=== PATIENT | female | born 1975 | race Caucasian/White ===

== ENCOUNTER 2017-10-27 10:41 | Inpatient (IN) | payer BC, OTHER ==
[~2017-10-27] VITALS: Ht 157.5 cm; Wt 61.1 kg
[~2017-10-27 10:41] MED LIST: QUEtiapine FUMARATE 25 MG TAB PO SCH
[2017-10-27] MEDS ORDERED: SODIUM CHLORIDE 0.9% 1,000 ML IV ONE ×2 (13:30→17:00)
[2017-10-27] MEDS ORDERED: IPRATROPIUM BROM 0.5 MG/2.5ML INH SOL NEB ONE ×2 (13:30→15:15)
[2017-10-27] MEDS ORDERED: methylPREDNISolone SOD SUCC 125 MG/2 ML VL IV ONE (13:30)
[2017-10-27] MEDS ORDERED: ALBUTEROL SULF 2.5 MG/0.5ML(0.5%) NEB SOLN NEB ONE ×2 (13:30→15:15)
[2017-10-27] MEDS ORDERED: cefTRIAXone 1GM/10ml IVPUSH 10 ML IV ONE ×2 (15:15)
[2017-10-27 15:26] LABS: Urine WBC None Seen /hpf (0 - 5)
[2017-10-27 15:39] LABS: Urine Bacteria NONE SEEN /hpf (None Seen); Urine Blood Negative /uL (Negative); Urine Specific Gravity 1.002 (1.001-1.035)
[2017-10-27 16:25] LABS: Basophils # (auto) 0 uL; Basophils % (auto) 0.4 % (0.0-2.0); Eosinophils # (auto) 0 uL; Hematocrit 38.1 % (36.0-46.0); Hemoglobin 12.8 g/dL (12.2-16.2); Lymphocytes # (auto) 0.5 uL; Lymphocytes % (auto) 4.9 % (10.0-50.0); Mean Corpuscular Hemoglobin 33.2 pg (28.0-32.0); Mean Corpuscular Hgb Conc. 33.5 g/dL (32.0-36.0); Mean Corpuscular Volume 99.3 fL (80.0-100.0); Monocytes # (auto) 0.4 uL; Monocytes % (auto) 3.5 % (0.0-12.0); Neutrophils # (auto) 9.9 uL; Neutrophils % (auto) 91.2 % (37.0-80.0); Platelet Count (auto) 307 10^3/uL (140-450); Red Blood Cells 3.84 10^6/uL (4.0-5.20); Red Cell Distribution Width 14.7 % (11.8-14.3); White Blood Cell 10.9 10^3/uL (4.4-10.8)
[2017-10-27 16:35] LABS: Albumin 3.2 g/dL (3.4-5.0); BUN/Creatinine Ratio 2.3; Potassium 3.5 mmol/L (3.5-5.1)
[2017-10-27 16:38] LABS: Bilirubin, Total 0.1 mg/dL (0.2-1.0); Total Protein 7.2 g/dL (6.4-8.2)
[2017-10-27] MEDS ORDERED: MORPHINE SULFATE 4 MG/ML SYR/VIAL IV PRN (18:15)
[2017-10-27] MEDS ORDERED: NITROGLYCERIN 0.4 MG SL TAB SL PRN (18:15)
[2017-10-27] MEDS ORDERED: ONDANSETRON HCL 4 MG/2 ML VIAL IV PRN (18:15)
[2017-10-27] MEDS: SODIUM CHLORIDE 0.9% 1,000 ML IV SCH (18:45)
[2017-10-27] MEDS: methylPREDNISolone SOD SUCC 125 MG/2 ML VL IV SCH (18:49)
[2017-10-27 19:20] VITALS: BP 123/67
[2017-10-27] MEDS ORDERED: QUET50TA PO (21:38)
[2017-10-27] MEDS ORDERED: ZOLP10TA6 PO (21:38)
[2017-10-27] MEDS ORDERED: BUDE0.253 IN (21:38)
[2017-10-27] MEDS ORDERED: PRE5T PO (21:38)
[2017-10-27] MEDS ORDERED: ALBU2TAB4 PO (21:38)
[2017-10-27] MEDS ORDERED: CARB200T4 PO (21:38)
[2017-10-27 22:00] VITALS: BP 123/67
[2017-10-27] MEDS: IPRATROPIUM BROM 0.5 MG/2.5ML INH SOL NEB SCH (22:10)
[2017-10-27] MEDS: ALBUTEROL SULF 2.5 MG/0.5ML(0.5%) NEB SOLN NEB SCH (22:10)
[2017-10-27] MEDS ORDERED: ALBUTEROL SULF 2.5 MG/0.5ML(0.5%) NEB SOLN NEB PRN (22:45)
[2017-10-27] MEDS ORDERED: ZOLPIDEM TARTRATE 5 MG TAB PO PRN (22:45)
[2017-10-27] MEDS ORDERED: QUEtiapine FUMARATE 25 MG TAB PO ONE (23:45)
[2017-10-28] MEDS: SODIUM CHLORIDE 0.9% 1,000 ML IV SCH ×2 (02:08→10:45)
[2017-10-28] MEDS: ALBUTEROL SULF 2.5 MG/0.5ML(0.5%) NEB SOLN NEB SCH ×7 (02:20→22:39)
[2017-10-28] MEDS: IPRATROPIUM BROM 0.5 MG/2.5ML INH SOL NEB SCH ×6 (02:20→22:39)
[2017-10-28 04:40] VITALS: BP 123/67
[2017-10-28 05:00] VITALS: BP 122/64
[2017-10-28 05:59] LABS: Basophils # (auto) 0 uL; Basophils % (auto) 0.4 % (0.0-2.0); Eosinophils # (auto) 0 uL; Eosinophils % (auto) 0.1 % (0.0-7.0); Hemoglobin 11.9 g/dL (12.2-16.2); Lymphocytes # (auto) 2.1 uL; Lymphocytes % (auto) 30.1 % (10.0-50.0); Mean Corpuscular Hemoglobin 33.9 pg (28.0-32.0); Mean Corpuscular Hgb Conc. 34.1 g/dL (32.0-36.0); Mean Corpuscular Volume 99.5 fL (80.0-100.0); Monocytes % (auto) 15.1 % (0.0-12.0); Neutrophils # (auto) 3.7 uL; Neutrophils % (auto) 54.3 % (37.0-80.0); Nucleated Red Blood Cells % 0.1 %; Platelet Count (auto) 272 10^3/uL (140-450); Red Blood Cells 3.52 10^6/uL (4.0-5.20); Red Cell Distribution Width 14.2 % (11.8-14.3); White Blood Cell 6.8 10^3/uL (4.4-10.8)
[2017-10-28 06:22] LABS: Alanine Aminotransferase 23 U/L (13-56); Albumin 2.7 g/dL (3.4-5.0); Alkaline Phosphatase 70 U/L (45-117); Anion Gap 6 (5-15); Aspartate Aminotransferase 17 U/L (15-37); BUN/Creatinine Ratio 11.1; Bilirubin, Total < 0.1 mg/dL (0.2-1.0); Blood Urea Nitrogen 3 mg/dL (7-18); Calcium 7.8 mg/dL (8.5-10.1); Carbon Dioxide 28 mmol/L (21-32); Chloride 105 mmol/L (98-107); GFR African American 353 mL/min; GFR Non-African American 291 mL/min; Glucose 90 mg/dL (74-106); Potassium 3.8 mmol/L (3.5-5.1); Sodium 139 mmol/L (136-145); Total Protein 6.4 g/dL (6.4-8.2)
[2017-10-28] MEDS: carBAMazepine 200 MG TAB PO SCH ×3 (06:53→21:57)
[2017-10-28] MEDS: methylPREDNISolone SOD SUCC 125 MG/2 ML VL IV SCH ×2 (06:54→17:56)
[2017-10-28] MEDS: ACETAMINOPHEN 500 MG TAB PO PRN (08:47)
[2017-10-28 09:00] VITALS: BP 144/88
[2017-10-28] MEDS ORDERED: cefTRIAXone 1GM/10ml IVPUSH 10 ML IV SCH (09:00)
[2017-10-28] MEDS ORDERED: QUEtiapine FUMARATE 25 MG TAB PO SCH ×3 (10:00→18:00)
[2017-10-28 13:00] VITALS: BP 122/76
[2017-10-28] MEDS ORDERED: LEVOFLOXACIN 500MG 100 ML IV ONE (14:00)
[2017-10-28] MEDS ORDERED: THROAT LOZENGES(CEPASTAT) MT PRN (14:00)
[2017-10-28 17:00] VITALS: BP 126/79
[2017-10-28] MEDS: QUEtiapine FUMARATE 25 MG TAB PO SCH (21:57)
[2017-10-28] MEDS: ZOLPIDEM TARTRATE 5 MG TAB PO PRN (21:57)
[2017-10-28 22:00] VITALS: BP 130/79
[2017-10-28] MEDS: BUDESONIDE (INHALATION) 0.5 MG/2 ML NEB NEB SCH ×2 (22:00→22:39)
[2017-10-29] MEDS: IPRATROPIUM BROM 0.5 MG/2.5ML INH SOL NEB SCH ×6 (01:59→22:04)
[2017-10-29] MEDS: ACETAMINOPHEN 500 MG TAB PO PRN (04:09)
[2017-10-29 05:24] VITALS: BP 113/71
[2017-10-29] MEDS: ALBUTEROL SULF 2.5 MG/0.5ML(0.5%) NEB SOLN NEB SCH ×5 (06:42→22:04)
[2017-10-29] MEDS: carBAMazepine 200 MG TAB PO SCH ×3 (06:43→22:32)
[2017-10-29] MEDS: methylPREDNISolone SOD SUCC 125 MG/2 ML VL IV SCH ×2 (06:43→18:13)
[2017-10-29] MEDS: QUEtiapine FUMARATE 25 MG TAB PO SCH ×3 (06:44→22:32)
[2017-10-29 09:00] VITALS: BP 124/67
[2017-10-29] MEDS ORDERED: MORPHINE SULFATE 10 MG/ML INJ 1ML SDV IV PRN (09:30)
[2017-10-29] MEDS: BUDESONIDE (INHALATION) 0.5 MG/2 ML NEB NEB SCH ×2 (10:34→19:09)
[2017-10-29] MEDS: LEVOFLOXACIN 500MG 100 ML IV SCH (10:44)
[2017-10-29 12:55] VITALS: BP 106/62
[2017-10-29 17:00] VITALS: BP 130/80
[2017-10-29 22:18] VITALS: BP 126/79
[2017-10-29] MEDS: ZOLPIDEM TARTRATE 5 MG TAB PO PRN (22:33)
[2017-10-30] MEDS: ALBUTEROL SULF 2.5 MG/0.5ML(0.5%) NEB SOLN NEB SCH ×5 (02:46→19:04)
[2017-10-30] MEDS: IPRATROPIUM BROM 0.5 MG/2.5ML INH SOL NEB SCH ×5 (02:46→19:03)
[2017-10-30 05:06] VITALS: BP 109/69
[2017-10-30] MEDS: carBAMazepine 200 MG TAB PO SCH ×2 (06:34→14:48)
[2017-10-30] MEDS: QUEtiapine FUMARATE 25 MG TAB PO SCH ×2 (06:35→12:47)
[2017-10-30] MEDS: methylPREDNISolone SOD SUCC 125 MG/2 ML VL IV SCH (06:35)
[2017-10-30 07:34] LABS: Hematocrit 38.7 % (36.0-46.0); Hemoglobin 12.8 g/dL (12.2-16.2); Mean Corpuscular Hemoglobin 32.9 pg (28.0-32.0); Mean Corpuscular Hgb Conc. 33.2 g/dL (32.0-36.0); Mean Corpuscular Volume 99.3 fL (80.0-100.0); Platelet Count (auto) 300 10^3/uL (140-450); Red Blood Cells 3.89 10^6/uL (4.0-5.20); Red Cell Distribution Width 13.9 % (11.8-14.3); White Blood Cell 5.4 10^3/uL (4.4-10.8)
[2017-10-30 07:38] LABS: Band Neutrophils % (manual) 0; Basophils % (manual) 0 (0.0-2.0); Blast Cells 0; Eosinophils % (manual) 0 (0-7); Metamyelocytes % 0; Myelocytes % 0; Promyelocytes % 0; Reactive Lymphocytes 0
[2017-10-30] MEDS: BUDESONIDE (INHALATION) 0.5 MG/2 ML NEB NEB SCH (07:41)
[2017-10-30 08:00] LABS: BUN/Creatinine Ratio 13.3; Calcium 8.3 mg/dL (8.5-10.1); Potassium 3.4 mmol/L (3.5-5.1)
[2017-10-30 08:02] LABS: Bilirubin, Total 0.1 mg/dL (0.2-1.0); Total Protein 6.8 g/dL (6.4-8.2)
[2017-10-30 08:44] LABS: Lymphocytes % (manual) 54 (10.0-50.0); Monocytes % (manual) 13 (0-12)
[2017-10-30 09:00] VITALS: BP 106/69
[2017-10-30] MEDS: LEVOFLOXACIN 500MG 100 ML IV SCH (12:46)
[2017-10-30 13:00] VITALS: BP 119/72
[2017-10-30 16:30] VITALS: BP 119/72
[2017-10-30 16:49] VITALS: BP 129/76
== END 2017-10-30 19:13 | disposition home or self-care (01) | DRG 203 ==
LOC: ER 10:41 → TELE-WESTW 10:42
PROVIDERS: ADMIT Family Medicine; ATTEND Family Medicine
DX: J45.902 Unspecified asthma with status asthmaticus (principal); F20.9 Schizophrenia, unspecified; J20.9 Acute bronchitis, unspecified; R09.02 Hypoxemia; F17.210 Nicotine dependence, cigarettes, uncomplicated; G47.00 Insomnia, unspecified; Z88.0 Allergy status to penicillin
CPT/HCPCS: 36415; 71010; 71020; 80053; 81001; 83735; 84443; 85007; 85025; 85027; 87040; 87070; 87205; 87400; 94640; 94644; 94645; 94761; 96361; 96365; 96375; J1956

== ENCOUNTER 2017-11-15 05:14 | Inpatient (IN) | payer BC ==
[~2017-11-15] VITALS: Ht 154.9 cm; Wt 57.3 kg
[~2017-11-15 05:14] MED LIST changes: +ALBU2TAB4 PO; +BUDE0.253 IN; +CARB200T4 PO; +PRE5T PO; +QUET50TA PO; -QUEtiapine FUMARATE 25 MG TAB PO SCH; +ZOLP10TA6 PO
[2017-11-15 06:15] LABS: Basophils # (auto) 0 uL; Basophils % (auto) 0.2 % (0.0-2.0); Eosinophils # (auto) 0 uL; Hematocrit 44.6 % (36.0-46.0); Hemoglobin 15.1 g/dL (12.2-16.2); Lymphocytes # (auto) 2.1 uL; Lymphocytes % (auto) 9.9 % (10.0-50.0); Mean Corpuscular Hemoglobin 32.9 pg (28.0-32.0); Mean Corpuscular Hgb Conc. 33.8 g/dL (32.0-36.0); Mean Corpuscular Volume 97.3 fL (80.0-100.0); Monocytes % (auto) 4.7 % (0.0-12.0); Neutrophils # (auto) 17.8 uL; Neutrophils % (auto) 85.2 % (37.0-80.0); Platelet Count (auto) 327 10^3/uL (140-450); Red Blood Cells 4.58 10^6/uL (4.0-5.20); Red Cell Distribution Width 13.7 % (11.8-14.3); White Blood Cell 20.9 10^3/uL (4.4-10.8)
[2017-11-15] MEDS ORDERED: ACETAMINOPHEN 325 MG TAB PO ONE (06:15)
[2017-11-15 06:27] LABS: INR 0.9 (0.9-1.15); Partial Thromboplastin Time 28.2 sec (22.64-33.71); Prothrombin Time 9.8 sec (9.37-12.3)
[2017-11-15 06:45] LABS: Alanine Aminotransferase 28 U/L (13-56); Albumin 3.2 g/dL (3.4-5.0); Alkaline Phosphatase 94 U/L (45-117); Anion Gap 9 (5-15); Aspartate Aminotransferase 9 U/L (15-37); BUN/Creatinine Ratio 7.5; Bilirubin, Total 0.4 mg/dL (0.2-1.0); Blood Urea Nitrogen 3 mg/dL (7-18); Calcium 8.7 mg/dL (8.5-10.1); Carbon Dioxide 29 mmol/L (21-32); Chloride 92 mmol/L (98-107); GFR African American 224 mL/min; GFR Non-African American 185 mL/min; Glucose 95 mg/dL (74-106); Potassium 3.9 mmol/L (3.5-5.1); Sodium 130 mmol/L (136-145); Total Protein 7.7 g/dL (6.4-8.2)
[2017-11-15] MEDS ORDERED: SODIUM CHLORIDE 0.9% 1,000 ML IV ONE ×2 (07:10→08:15)
[2017-11-15] MEDS ORDERED: cefTRIAXone 1GM/10ml IVPUSH 10 ML IV ONE (07:15)
[2017-11-15] MEDS ORDERED: methylPREDNISolone SOD SUCC 125 MG/2 ML VL IV ONE (07:15)
[2017-11-15] MEDS ORDERED: ALBUTEROL SULF 2.5 MG/0.5ML(0.5%) NEB SOLN NEB ONE (07:15)
[2017-11-15] MEDS ORDERED: IPRATROPIUM BROM 0.5 MG/2.5ML INH SOL NEB ONE (07:15)
[2017-11-15] MEDS ORDERED: AZITHROMYCIN 500MG/ 250ML 250 ML IV ONE (07:15)
[2017-11-15 07:25] LABS: Urine Bacteria NONE SEEN /hpf (None Seen); Urine Blood Negative /uL (Negative); Urine Specific Gravity 1.004 (1.001-1.035); Urine WBC <1 /hpf (0 - 5)
[2017-11-15] MEDS ORDERED: PROMETHAZINE HCL 25 MG/ML 1ML IV PRN (10:30)
[2017-11-15] MEDS ORDERED: VANCOMYCIN 1GM/250ML 250 ML IV ONE (10:30)
[2017-11-15] MEDS ORDERED: HYDROcodone-ACET 5/325MG TAB PO PRN (10:30)
[2017-11-15] MEDS ORDERED: LACTULOSE 20Gm/30ML SOLN PO PRN (10:30)
[2017-11-15] MEDS ORDERED: NITROGLYCERIN 0.4 MG SL TAB SL PRN (10:30)
[2017-11-15] MEDS ORDERED: ALBUTEROL SULF 2.5 MG/0.5ML(0.5%) NEB SOLN NEB PRN (10:30)
[2017-11-15] MEDS ORDERED: VANCOMYCIN PER PHARMACY 0 MG IV SCH (10:30)
[2017-11-15] MEDS ORDERED: MORPHINE SULFATE 10 MG/ML INJ 1ML SDV IV PRN ×2 (10:30)
[2017-11-15] MEDS ORDERED: LORazepam 0.5 MG TAB PO PRN (10:30)
[2017-11-15] MEDS ORDERED: ACETAMINOPHEN 500 MG TAB PO PRN (10:30)
[2017-11-15] MEDS ORDERED: QUEtiapine FUMARATE 25 MG TAB PO ONE (10:45)
[2017-11-15] MEDS ORDERED: ENOXAPARIN SOD 40 MG/0.4 ML SYRINGE SC ONE (10:45)
[2017-11-15] MEDS: ZOLPIDEM TARTRATE 5 MG TAB PO SCH ×2 (10:45→22:15)
[2017-11-15] MEDS: SODIUM CHLORIDE 0.9% 1,000 ML IV SCH ×2 (10:52→22:38)
[2017-11-15] MEDS: ALBUTEROL SULF 2.5 MG/0.5ML(0.5%) NEB SOLN NEB SCH ×2 (11:30→20:03)
[2017-11-15] MEDS ORDERED: LEVOFLOXACIN 750MG 150 ML IV ONE (11:45)
[2017-11-15] MEDS ORDERED: chlordiazePOXIDE HCL 25 MG CAP PO PRN (12:00)
[2017-11-15] MEDS ORDERED: PROMETHAZINE W/CODEINE 5 ML ORAL SYRUP PO PRN (12:00)
[2017-11-15] MEDS ORDERED: THIAMINE HCL 100 MG/ML 2ML VIAL IV ONE (12:00)
[2017-11-15] MEDS: chlordiazePOXIDE HCL 5 MG CAP PO SCH ×2 (12:00→18:00)
[2017-11-15] MEDS: methylPREDNISolone SOD SUCC 40 MG/ML VL IV SCH ×2 (12:21→18:20)
[2017-11-15 13:16] VITALS: BP 116/72
[2017-11-15] MEDS: QUEtiapine FUMARATE 25 MG TAB PO SCH ×2 (13:54→22:15)
[2017-11-15] MEDS ORDERED: QUEtiapine FUMARATE 25 MG TAB PO SCH ×3 (14:00→22:00)
[2017-11-15] MEDS: carBAMazepine 200 MG TAB PO SCH ×2 (14:11→22:15)
[2017-11-15] MEDS: MEROPENEM 1gm/20ml IVPUSH 20 ML IV SCH ×2 (14:53→22:15)
[2017-11-15] MEDS: VANCOMYCIN 750 MG in D5W 5% 250 ML IV SCH (20:00)
[2017-11-15] MEDS: BUDESONIDE (INHALATION) 0.5 MG/2 ML NEB NEB SCH (20:03)
[2017-11-15] MEDS: BUDESONIDE 180 MCG IN SCH (20:07)
[2017-11-16] MEDS: methylPREDNISolone SOD SUCC 40 MG/ML VL IV SCH ×4 (00:19→17:25)
[2017-11-16] MEDS: chlordiazePOXIDE HCL 5 MG CAP PO SCH ×4 (00:19→17:25)
[2017-11-16] MEDS: ALBUTEROL SULF 2.5 MG/0.5ML(0.5%) NEB SOLN NEB SCH ×5 (00:40→22:51)
[2017-11-16] MEDS: VANCOMYCIN 750 MG in D5W 5% 250 ML IV SCH ×3 (03:57→20:10)
[2017-11-16] MEDS: MEROPENEM 1gm/20ml IVPUSH 20 ML IV SCH ×3 (05:57→22:31)
[2017-11-16] MEDS: carBAMazepine 200 MG TAB PO SCH ×3 (06:02→22:22)
[2017-11-16] MEDS: BUDESONIDE (INHALATION) 0.5 MG/2 ML NEB NEB SCH (06:28)
[2017-11-16 06:31] LABS: Basophils # (auto) 0 uL; Eosinophils # (auto) 0 uL; Hematocrit 36.8 % (36.0-46.0); Hemoglobin 12.4 g/dL (12.2-16.2); Lymphocytes # (auto) 1.6 uL; Mean Corpuscular Hgb Conc. 33.8 g/dL (32.0-36.0); Mean Corpuscular Volume 97.8 fL (80.0-100.0); Monocytes # (auto) 0.8 uL; Monocytes % (auto) 5.2 % (0.0-12.0); Neutrophils # (auto) 12.3 uL; Neutrophils % (auto) 83.8 % (37.0-80.0); Platelet Count (auto) 257 10^3/uL (140-450); Red Blood Cells 3.76 10^6/uL (4.0-5.20); Red Cell Distribution Width 14.1 % (11.8-14.3); White Blood Cell 14.7 10^3/uL (4.4-10.8)
[2017-11-16 06:49] LABS: Albumin 2.6 g/dL (3.4-5.0); BUN/Creatinine Ratio 17.4; Calcium 8.7 mg/dL (8.5-10.1)
[2017-11-16 06:52] LABS: Bilirubin, Total 0.2 mg/dL (0.2-1.0); Total Protein 6.4 g/dL (6.4-8.2)
[2017-11-16] MEDS: BUDESONIDE 180 MCG IN SCH ×2 (09:22→22:00)
[2017-11-16] MEDS: AZITHROMYCIN 500MG/ 250ML 250 ML IV SCH (09:30)
[2017-11-16] MEDS: QUEtiapine FUMARATE 25 MG TAB PO SCH ×3 (09:30→22:22)
[2017-11-16] MEDS: THIAMINE HCL 100 MG/ML 2ML VIAL IV SCH (09:30)
[2017-11-16] MEDS: ENOXAPARIN SOD 40 MG/0.4 ML SYRINGE SC SCH (09:31)
[2017-11-16] MEDS ORDERED: LEVOFLOXACIN 750MG 150 ML IV SCH (10:00)
[2017-11-16] MEDS ORDERED: ALBUTEROL SULF 2.5 MG/0.5ML(0.5%) NEB SOLN NEB SCH (12:00)
[2017-11-16] MEDS: SODIUM CHLORIDE 0.9% 1,000 ML IV SCH (13:03)
[2017-11-16 15:45] VITALS: BP 112/68
[2017-11-16 22:00] VITALS: BP 124/69
[2017-11-16] MEDS: ZOLPIDEM TARTRATE 5 MG TAB PO SCH (22:22)
[2017-11-17] MEDS: methylPREDNISolone SOD SUCC 40 MG/ML VL IV SCH ×4 (01:16→17:54)
[2017-11-17] MEDS: chlordiazePOXIDE HCL 5 MG CAP PO SCH ×4 (01:16→17:54)
[2017-11-17] MEDS: SODIUM CHLORIDE 0.9% 1,000 ML IV SCH ×2 (02:06→15:41)
[2017-11-17] MEDS: ALBUTEROL SULF 2.5 MG/0.5ML(0.5%) NEB SOLN NEB SCH ×6 (02:14→22:07)
[2017-11-17] MEDS: VANCOMYCIN 750 MG in D5W 5% 250 ML IV SCH ×3 (03:56→20:00)
[2017-11-17 05:41] VITALS: BP 116/62
[2017-11-17] MEDS: carBAMazepine 200 MG TAB PO SCH ×3 (06:06→22:04)
[2017-11-17] MEDS: MEROPENEM 1gm/20ml IVPUSH 20 ML IV SCH ×3 (06:06→22:03)
[2017-11-17] MEDS: QUEtiapine FUMARATE 25 MG TAB PO SCH ×3 (08:00→22:04)
[2017-11-17 08:01] LABS: Basophils # (auto) 0 uL; Basophils % (auto) 0.2 % (0.0-2.0); Eosinophils # (auto) 0 uL; Eosinophils % (auto) 0.1 % (0.0-7.0); Hematocrit 36.6 % (36.0-46.0); Hemoglobin 12.3 g/dL (12.2-16.2); Lymphocytes # (auto) 1.3 uL; Lymphocytes % (auto) 12.6 % (10.0-50.0); Mean Corpuscular Hemoglobin 33.1 pg (28.0-32.0); Mean Corpuscular Hgb Conc. 33.6 g/dL (32.0-36.0); Mean Corpuscular Volume 98.5 fL (80.0-100.0); Monocytes # (auto) 0.7 uL; Monocytes % (auto) 7.1 % (0.0-12.0); Neutrophils # (auto) 8.2 uL; Nucleated Red Blood Cells % 0.1 %; Platelet Count (auto) 265 10^3/uL (140-450); Red Blood Cells 3.72 10^6/uL (4.0-5.20); Red Cell Distribution Width 13.8 % (11.8-14.3); White Blood Cell 10.3 10^3/uL (4.4-10.8)
[2017-11-17 08:14] LABS: Calcium 8.3 mg/dL (8.5-10.1); Magnesium 2.5 mg/dL (1.6-2.6); Potassium 4.1 mmol/L (3.5-5.1)
[2017-11-17 09:00] VITALS: BP 116/75
[2017-11-17] MEDS: THIAMINE HCL 100 MG/ML 2ML VIAL IV SCH (09:36)
[2017-11-17] MEDS: AZITHROMYCIN 500MG/ 250ML 250 ML IV SCH (09:36)
[2017-11-17] MEDS: ENOXAPARIN SOD 40 MG/0.4 ML SYRINGE SC SCH (09:37)
[2017-11-17] MEDS: BUDESONIDE 180 MCG IN SCH ×2 (10:00→22:00)
[2017-11-17 13:00] VITALS: BP 127/80
[2017-11-17] MEDS ORDERED: FAMOTIDINE 20 MG TAB PO ONE (14:45)
[2017-11-17 17:00] VITALS: BP 123/83
[2017-11-17 22:00] VITALS: BP 137/91
[2017-11-17] MEDS: FAMOTIDINE 20 MG TAB PO SCH (22:04)
[2017-11-17] MEDS: ZOLPIDEM TARTRATE 5 MG TAB PO SCH (22:04)
[2017-11-18] MEDS: chlordiazePOXIDE HCL 5 MG CAP PO SCH ×3 (01:05→13:37)
[2017-11-18] MEDS: methylPREDNISolone SOD SUCC 40 MG/ML VL IV SCH ×3 (01:05→13:34)
[2017-11-18] MEDS: ALBUTEROL SULF 2.5 MG/0.5ML(0.5%) NEB SOLN NEB SCH ×4 (02:20→14:14)
[2017-11-18] MEDS: VANCOMYCIN 750 MG in D5W 5% 250 ML IV SCH ×2 (04:00→13:34)
[2017-11-18] MEDS: MEROPENEM 1gm/20ml IVPUSH 20 ML IV SCH (05:13)
[2017-11-18] MEDS: SODIUM CHLORIDE 0.9% 1,000 ML IV SCH (05:13)
[2017-11-18] MEDS: carBAMazepine 200 MG TAB PO SCH ×2 (05:14→15:11)
[2017-11-18 05:53] VITALS: BP 120/75
[2017-11-18 09:00] VITALS: BP 131/82
[2017-11-18 09:11] VITALS: BP 120/75
[2017-11-18] MEDS ORDERED: BUDESONIDE (INHALATION) 0.5 MG/2 ML NEB NEB SCH (10:00)
[2017-11-18] MEDS: QUEtiapine FUMARATE 25 MG TAB PO SCH ×2 (10:35→15:11)
[2017-11-18] MEDS: THIAMINE HCL 100 MG/ML 2ML VIAL IV SCH (10:35)
[2017-11-18] MEDS: FAMOTIDINE 20 MG TAB PO SCH (10:36)
[2017-11-18] MEDS: AZITHROMYCIN 500MG/ 250ML 250 ML IV SCH (10:36)
[2017-11-18] MEDS: ENOXAPARIN SOD 40 MG/0.4 ML SYRINGE SC SCH (10:36)
[2017-11-18 13:00] VITALS: BP 133/72
[2017-11-18 15:44] VITALS: BP 133/72
[2017-11-18 17:37] VITALS: BP 84/55
== END 2017-11-18 17:20 | disposition home or self-care (01) | DRG 177 ==
LOC: ER 05:15 → TELE 05:16 → TELE-WESTW 11-16 15:49
PROVIDERS: ADMIT Internal Medicine; ATTEND Internal Medicine
DX: J69.0 Pneumonitis due to inhalation of food and vomit (principal); J96.00 Acute respiratory failure, unspecified whether with hypoxia or hypercapnia; J45.41 Moderate persistent asthma with (acute) exacerbation; E44.1 Mild protein-calorie malnutrition; Z99.81 Dependence on supplemental oxygen; E78.5 Hyperlipidemia, unspecified; F17.210 Nicotine dependence, cigarettes, uncomplicated; F31.9 Bipolar disorder, unspecified; F41.9 Anxiety disorder, unspecified; Y95 Nosocomial condition; Z85.830 Personal history of malignant neoplasm of bone; Z87.01 Personal history of pneumonia (recurrent); Z90.710 Acquired absence of both cervix and uterus; Z68.23 Body mass index [BMI] 23.0-23.9, adult
CPT/HCPCS: 36415; 71045; 80048; 80053; 80202; 81001; 83735; 83880; 84100; 84484; 85025; 85610; 85730; 87040; 87070; 87077; 87081; 87186; 87205; 87400; 93005; 94640; 96365; 96366; 96375; 96379; J1956; J7060

== ENCOUNTER 2018-04-03 12:28 | Inpatient (IN) | payer BC ==
[~2018-04-03] VITALS: Ht 154.9 cm; Wt 68.0 kg
[2018-04-03] MEDS ORDERED: SODIUM CHLORIDE 0.9% 1,000 ML IV ONE (12:53)
[2018-04-03] MEDS ORDERED: ALBUTEROL SULF 2.5 MG/0.5ML(0.5%) NEB SOLN HHN ONE (13:00)
[2018-04-03] MEDS ORDERED: IPRATROPIUM BROM 0.5 MG/2.5ML INH SOL HHN ONE (13:00)
[2018-04-03 13:17] LABS: Basophils # (auto) 0.1 uL; Eosinophils # (auto) 0.2 uL; Lymphocytes # (auto) 1.8 uL; Monocytes # (auto) 0.7 uL
[2018-04-03 13:19] LABS: Basophils % (auto) 1.5 % (0.0-2.0); Eosinophils % (auto) 2.3 % (0.0-7.0); Hemoglobin 12.1 g/dL (12.2-16.2); Lymphocytes % (auto) 23.8 % (10.0-50.0); Mean Corpuscular Hemoglobin 31.7 pg (28.0-32.0); Mean Corpuscular Hgb Conc. 33.5 g/dL (32.0-36.0); Mean Corpuscular Volume 94.6 fL (80.0-100.0); Monocytes % (auto) 9.1 % (0.0-12.0); Neutrophils # (auto) 4.9 uL; Neutrophils % (auto) 63.3 % (37.0-80.0); Platelet Count (auto) 562 10^3/uL (140-450); Red Blood Cells 3.81 10^6/uL (4.0-5.20); Red Cell Distribution Width 12.4 % (11.8-14.3); White Blood Cell 7.7 10^3/uL (4.4-10.8)
[2018-04-03 13:54] LABS: Alanine Aminotransferase 14 U/L (13-56); Alkaline Phosphatase 109 U/L (45-117); Anion Gap 9 (5-15); Aspartate Aminotransferase 15 U/L (15-37); BUN/Creatinine Ratio 3.1; Bilirubin, Total 0.1 mg/dL (0.2-1.0); Blood Urea Nitrogen 1 mg/dL (7-18); Calcium 8.6 mg/dL (8.5-10.1); Carbon Dioxide 25 mmol/L (21-32); Chloride 94 mmol/L (98-107); GFR African American 288 mL/min; GFR Non-African American 238 mL/min; Glucose 76 mg/dL (74-106); Magnesium 2.7 mg/dL (1.6-2.6); Potassium 4.3 mmol/L (3.5-5.1); Sodium 128 mmol/L (136-145); Total Protein 7.6 g/dL (6.4-8.2)
[2018-04-03] MEDS ORDERED: methylPREDNISolone SOD SUCC 40 MG/ML VL IV ONE (14:30)
[2018-04-03] MEDS: SODIUM CHLORIDE 0.9% 1,000 ML IV SCH (14:30)
[2018-04-03] MEDS ORDERED: cefTRIAXone 1GM/10ml IVPUSH 10 ML IV ONE (14:30)
[2018-04-03] MEDS ORDERED: ALPRAZolam 0.25 MG TAB PO PRN (14:30)
[2018-04-03] MEDS ORDERED: AZITHROMYCIN 500MG/ 250ML 250 ML IV ONE (14:30)
[2018-04-03] MEDS ORDERED: LEVOFLOXACIN 500MG 100 ML IV ONE (14:45)
[2018-04-03 15:19] LABS: Urine Bacteria NONE SEEN /hpf (None Seen); Urine Blood Negative /uL (Negative); Urine Specific Gravity 1.004 (1.001-1.035); Urine WBC <1 /hpf (0 - 5)
[2018-04-03] MEDS ORDERED: ALPR0.25 PO (15:57)
[2018-04-03] MEDS ORDERED: QUET50TA PO (15:57)
[2018-04-03] MEDS ORDERED: QUET25TA37 PO (15:57)
[2018-04-03] MEDS ORDERED: CARB200T PO ×2 (15:57)
[2018-04-03] MEDS ORDERED: POLY335015 PO (15:57)
[2018-04-03] MEDS ORDERED: ZOLP10TA PO (15:57)
[2018-04-03] MEDS ORDERED: TIOTCAP IN (15:57)
[2018-04-03] MEDS ORDERED: LEVA1NEB5 NEB (15:57)
[2018-04-03 16:08] VITALS: BP 113/64
[2018-04-03 16:39] VITALS: BP 113/64
[2018-04-03] MEDS ORDERED: QUEtiapine FUMARATE 25 MG TAB PO ONE (18:00)
[2018-04-03] MEDS ORDERED: carBAMazepine 200 MG TAB PO ONE (18:00)
[2018-04-03] MEDS: ALBUTEROL SULF 2.5 MG/0.5ML(0.5%) NEB SOLN NEB SCH (18:28)
[2018-04-03] MEDS: IPRATROPIUM BROM 0.5 MG/2.5ML INH SOL NEB SCH (18:28)
[2018-04-03 20:12] VITALS: BP 113/64
[2018-04-03 22:00] VITALS: BP 104/62
[2018-04-03] MEDS ORDERED: carBAMazepine 200 MG TAB PO SCH (22:00)
[2018-04-03] MEDS: carBAMazepine 200 MG TAB PO SCH (22:33)
[2018-04-03] MEDS: QUEtiapine FUMARATE 25 MG TAB PO SCH (22:33)
[2018-04-03] MEDS: methylPREDNISolone SOD SUCC 40 MG/ML VL IV SCH (22:34)
[2018-04-03] MEDS: ZOLPIDEM TARTRATE 5 MG TAB PO PRN (23:08)
[2018-04-04] MEDS: BUDESONIDE (INHALATION) 0.5 MG/2 ML NEB NEB SCH ×2 (00:10→15:02)
[2018-04-04] MEDS: ALBUTEROL SULF 2.5 MG/0.5ML(0.5%) NEB SOLN NEB SCH ×5 (01:27→19:22)
[2018-04-04] MEDS: IPRATROPIUM BROM 0.5 MG/2.5ML INH SOL NEB SCH ×5 (01:27→19:22)
[2018-04-04] MEDS: SODIUM CHLORIDE 0.9% 1,000 ML IV SCH (03:49)
[2018-04-04 05:35] VITALS: BP 101/53
[2018-04-04 07:35] LABS: Basophils # (auto) 0 uL; Eosinophils # (auto) 0 uL; Lymphocytes # (auto) 2.1 uL; Red Cell Distribution Width 12.4 % (11.8-14.3); White Blood Cell 7.3 10^3/uL (4.4-10.8)
[2018-04-04 07:37] LABS: Basophils % (auto) 0.6 % (0.0-2.0); Eosinophils % (auto) 0.4 % (0.0-7.0); Hematocrit 32.5 % (36.0-46.0); Lymphocytes % (auto) 28.8 % (10.0-50.0); Mean Corpuscular Hemoglobin 32.1 pg (28.0-32.0); Mean Corpuscular Hgb Conc. 33.7 g/dL (32.0-36.0); Mean Corpuscular Volume 95.1 fL (80.0-100.0); Monocytes # (auto) 0.6 uL; Monocytes % (auto) 8.5 % (0.0-12.0); Neutrophils # (auto) 4.5 uL; Neutrophils % (auto) 61.7 % (37.0-80.0); Platelet Count (auto) 509 10^3/uL (140-450); Red Blood Cells 3.41 10^6/uL (4.0-5.20)
[2018-04-04 07:58] LABS: Calcium 8.5 mg/dL (8.5-10.1); Potassium 4.8 mmol/L (3.5-5.1)
[2018-04-04] MEDS: QUEtiapine FUMARATE 25 MG TAB PO SCH ×3 (08:35→22:42)
[2018-04-04] MEDS: carBAMazepine 200 MG TAB PO SCH ×3 (08:36→22:42)
[2018-04-04] MEDS ORDERED: cefTRIAXone 1GM/10ml IVPUSH 10 ML IV SCH (09:00)
[2018-04-04 09:08] VITALS: BP 98/48
[2018-04-04] MEDS: methylPREDNISolone SOD SUCC 40 MG/ML VL IV SCH ×2 (09:39→22:42)
[2018-04-04] MEDS: AZITHROMYCIN 500MG/ 250ML 250 ML IV SCH (09:39)
[2018-04-04 13:30] VITALS: BP 113/72
[2018-04-04] MEDS ORDERED: LEVOFLOXACIN 500MG 100 ML IV SCH (13:45)
[2018-04-04] MEDS: guaiFENesin-DM 100/10mg/5ml SYR PO PRN ×2 (14:13→23:21)
[2018-04-04 17:21] VITALS: BP 116/48
[2018-04-04] MEDS ORDERED: IBUPROFEN 400 MG TAB PO ONE (21:30)
[2018-04-04 22:00] VITALS: BP 130/73
[2018-04-04] MEDS: ZOLPIDEM TARTRATE 5 MG TAB PO PRN (22:43)
[2018-04-05 05:30] VITALS: BP 91/50
[2018-04-05 06:52] LABS: Basophils # (auto) 0.1 uL; Basophils % (auto) 0.8 % (0.0-2.0); Eosinophils # (auto) 0 uL; Hemoglobin 10.8 g/dL (12.2-16.2); Lymphocytes # (auto) 2.1 uL; Mean Corpuscular Hgb Conc. 34.3 g/dL (32.0-36.0); Monocytes # (auto) 0.5 uL; Red Blood Cells 3.31 10^6/uL (4.0-5.20)
[2018-04-05 06:54] LABS: Eosinophils % (auto) 0.5 % (0.0-7.0); Hematocrit 31.7 % (36.0-46.0); Mean Corpuscular Hemoglobin 32.8 pg (28.0-32.0); Mean Corpuscular Volume 95.8 fL (80.0-100.0); Monocytes % (auto) 6.2 % (0.0-12.0); Neutrophils # (auto) 5.4 uL; Neutrophils % (auto) 66.5 % (37.0-80.0); Nucleated Red Blood Cells % 0.1 %; Platelet Count (auto) 536 10^3/uL (140-450); Red Cell Distribution Width 12.5 % (11.8-14.3); White Blood Cell 8.1 10^3/uL (4.4-10.8)
[2018-04-05 06:55] LABS: BUN/Creatinine Ratio 12.1; Calcium 8.7 mg/dL (8.5-10.1); Potassium 4.8 mmol/L (3.5-5.1)
[2018-04-05] MEDS: ALBUTEROL SULF 2.5 MG/0.5ML(0.5%) NEB SOLN NEB SCH ×3 (07:29→14:34)
[2018-04-05] MEDS: IPRATROPIUM BROM 0.5 MG/2.5ML INH SOL NEB SCH ×3 (07:29→14:34)
[2018-04-05] MEDS: carBAMazepine 200 MG TAB PO SCH ×2 (08:12→11:37)
[2018-04-05] MEDS: QUEtiapine FUMARATE 25 MG TAB PO SCH ×2 (08:12→11:38)
[2018-04-05 09:00] VITALS: BP 97/44
[2018-04-05] MEDS ORDERED: cefTRIAXone 1GM/10ml IVPUSH 10 ML IV SCH (09:00)
[2018-04-05] MEDS: methylPREDNISolone SOD SUCC 40 MG/ML VL IV SCH (09:32)
[2018-04-05] MEDS: AZITHROMYCIN 500MG/ 250ML 250 ML IV SCH (09:32)
[2018-04-05] MEDS: guaiFENesin-DM 100/10mg/5ml SYR PO PRN (09:33)
[2018-04-05] MEDS: BUDESONIDE (INHALATION) 0.5 MG/2 ML NEB NEB SCH (10:30)
[2018-04-05] MEDS ORDERED: ALB5IS NEB (11:09)
[2018-04-05] MEDS ORDERED: IPR002IS NEB ×2 (11:09→16:27)
[2018-04-05] MEDS ORDERED: OLAN5TAB30 PO (11:09)
[2018-04-05] MEDS ORDERED: PRE5T PO (11:09)
[2018-04-05] MEDS ORDERED: LEVO500T21 PO (11:09)
[2018-04-05 13:00] VITALS: BP 126/67
[2018-04-05 16:52] VITALS: BP 126/67
== END 2018-04-05 17:25 | disposition home health service (06) | DRG 193 ==
LOC: ER 12:28 → CENTRAL 12:29
PROVIDERS: ADMIT Internal Medicine; ATTEND Internal Medicine
DX: J18.9 Pneumonia, unspecified organism (principal); J96.20 Acute and chronic respiratory failure, unspecified whether with hypoxia or hypercapnia; J44.0 Chronic obstructive pulmonary disease with (acute) lower respiratory infection; J44.1 Chronic obstructive pulmonary disease with (acute) exacerbation; E87.1 Hypo-osmolality and hyponatremia; E86.0 Dehydration; F31.9 Bipolar disorder, unspecified; F41.9 Anxiety disorder, unspecified; Z87.891 Personal history of nicotine dependence; Z90.710 Acquired absence of both cervix and uterus; Z98.82 Breast implant status; Z99.81 Dependence on supplemental oxygen; Z88.0 Allergy status to penicillin
CPT/HCPCS: 36415; 71045; 71046; 80048; 80053; 81001; 83605; 83735; 83880; 84443; 84484; 84702; 85025; 87040; 93005; 93306; 94640; 94644; 94761; 96361; 96365; 96375

== ENCOUNTER 2019-01-03 10:35 | Inpatient (IN) | payer BC ==
[~2019-01-03] VITALS: Ht 154.9 cm; Wt 76.4 kg
[~2019-01-03 10:35] MED LIST changes: +ALB5IS NEB; +ALPR0.25 PO; +CARB200T PO; -CARB200T4 PO; +IPR002IS NEB; +LEVO500T21 PO; +OLAN5TAB30 PO; +POLY335015 PO; -QUET50TA PO; +ZOLP10TA PO; -ZOLP10TA6 PO
[2019-01-03] MEDS ORDERED: methylPREDNISolone SOD SUCC 125 MG/2 ML VL IV ONE (12:30)
[2019-01-03] MEDS ORDERED: ALBUTEROL SULF 2.5 MG/0.5ML(0.5%) NEB SOLN HHN ONE (12:30)
[2019-01-03] MEDS ORDERED: IPRATROPIUM BROM 0.5 MG/2.5ML INH SOL HHN ONE (12:30)
[2019-01-03 13:55] LABS: Basophils # (auto) 0.1 uL; Basophils % (auto) 0.8 % (0.0-2.0); Eosinophils # (auto) 0.5 uL; Eosinophils % (auto) 5.1 % (0.0-7.0); Hematocrit 41.4 % (36.0-46.0); Hemoglobin 13.9 g/dL (12.2-16.2); Lymphocytes # (auto) 3.1 uL; Lymphocytes % (auto) 30.6 % (10.0-50.0); Mean Corpuscular Hgb Conc. 33.5 g/dL (32.0-36.0); Mean Corpuscular Volume 98.7 fL (80.0-100.0); Monocytes # (auto) 0.7 uL; Monocytes % (auto) 7.3 % (0.0-12.0); Neutrophils # (auto) 5.7 uL; Neutrophils % (auto) 56.2 % (37.0-80.0); Nucleated Red Blood Cells % 0.2 %; Platelet Count (auto) 378 10^3/uL (140-450); Red Blood Cells 4.19 10^6/uL (4.0-5.20); Red Cell Distribution Width 12.5 % (11.8-14.3); White Blood Cell 10.2 10^3/uL (4.4-10.8)
[2019-01-03 14:14] LABS: Albumin 3.6 g/dL (3.4-5.0); Anion Gap 8 (5-15); BUN/Creatinine Ratio 6.9; Blood Urea Nitrogen 4 mg/dL (7-18); Calcium 8.1 mg/dL (8.5-10.1); Carbon Dioxide 24 mmol/L (21-32); Chloride 104 mmol/L (98-107); GFR African American 145 mL/min; GFR Non-African American 119 mL/min; Glucose 116 mg/dL (74-106); Potassium 3.4 mmol/L (3.5-5.1); Sodium 136 mmol/L (136-145)
[2019-01-03 14:19] LABS: Alanine Aminotransferase 32 U/L (13-56); Alkaline Phosphatase 96 U/L (45-117); Aspartate Aminotransferase 21 U/L (15-37); Bilirubin, Total 0.1 mg/dL (0.2-1.0); Total Protein 7.7 g/dL (6.4-8.2)
[2019-01-03] MEDS ORDERED: ACETAMINOPHEN 325 MG TAB PO ONE (14:30)
[2019-01-03] MEDS ORDERED: ACETAMINOPHEN 325 MG TAB PO PRN (16:45)
[2019-01-03] MEDS ORDERED: NITROGLYCERIN 0.4 MG SL TAB SL PRN (16:45)
[2019-01-03] MEDS ORDERED: MORPHINE SULFATE 4 MG/ML SYR/VIAL IV PRN (16:45)
[2019-01-03] MEDS ORDERED: ALPRAZolam 0.25 MG TAB PO PRN (17:15)
[2019-01-03] MEDS ORDERED: ALBUTEROL SULF 2.5 MG/0.5ML(0.5%) NEB SOLN NEB PRN (18:00)
--- NOTE | 2019-01-03 18:07 | NUR ---
HOME MEDICATIONS:// PREFERRED PHARMACY SEROQUEL 20MG IN AM AND 50MG AT NIGHT CARBAMAZEPINE 200MG DAILY MONTELUKAST 10 MG DAILY [facility] [phone] [id number] [facility] [id number]
[2019-01-03] MEDS: BUDESONIDE (INHALATION) 0.5 MG/2 ML NEB NEB SCH (18:36)
[2019-01-03] MEDS: IPRATROPIUM BROM 0.5 MG/2.5ML INH SOL NEB SCH ×2 (18:36→22:25)
[2019-01-03] MEDS: ALBUTEROL SULF 2.5 MG/0.5ML(0.5%) NEB SOLN NEB SCH ×2 (18:37→22:25)
[2019-01-03] MEDS: LEVOFLOXACIN 500MG 100 ML IV SCH (18:45)
[2019-01-03] MEDS: HYDROcodone-ACET 5/325MG TAB PO PRN (18:45)
[2019-01-03] MEDS: OLANZapine 5 MG TAB PO SCH (18:46)
[2019-01-03 19:31] VITALS: BP 109/67
--- NOTE | 2019-01-03 20:00 | NUR ---
OPENING NOTE RECEIVED REPORT FROM DAYSHIFT RN. ASSUMING ROLE OF CARE OF PATIENT AT THIS TIME. PATIENT SHOWING NO SIGN OF DISTRESS, SHORTNESS OF BREATH, AND PATIENT DENIES ANY PAIN AT THIS TIME. PATIENT'S LUNGS SOUND CLEAR PATIENT HAD JUST RECEIVED BREATHING TREATMENT. PATIENT EDUCATED ON PLAN OF CARE FOR THE NIGHT. PATIENT VERBALIZES UNDERSTANDING. BED LOWERED, CALL LIGHT WITHIN REACH, AND PATIENT WILL BE ROUNDED ON EVERY HOUR AND NEEDED.
[2019-01-03 21:00] VITALS: BP 124/73
--- NOTE | 2019-01-03 21:44 | NUR ---
PATIENT REQUESTING SEROQUEL MEDICATION AND A CHANGE IN SLEEPING PILL PATIENT STATES THAT THEY NORMALLY TAKE TEGRETOL AND SEROQUEL TOGETHER AND IT HELPS HER SLEEP. SHE ALSO STATES THAT SHE DOES NOT LIKE AMBIEN IT CAUSES HER NIGHTMARES. WILL CONTACT HOSPITALIST TO REQUEST ORDERS.
[2019-01-03] MEDS ORDERED: methylPREDNISolone SOD SUCC 40 MG/ML VL IV SCH (22:00)
--- NOTE | 2019-01-03 22:00 | NUR ---
CALLED MD CHOPRA OFFICE PATIENT REQUESTING SEROQUEL MEDICATION FOR HS. PATIENT STATES THAT THEY TAKE SEROQUEL AND TEGRETOL AT BEDTIME AND IT HELPS TO SLEEP. LIST OF MEDICATIONS PROVIDED TO MD. STATED OK TO RESUME SEROQUEL. ORDER PLACED.
[2019-01-03] MEDS: carBAMazepine 200 MG TAB PO SCH (22:13)
[2019-01-03] MEDS: methylPREDNISolone SOD SUCC 125 MG/2 ML VL IV SCH (22:13)
[2019-01-03] MEDS: QUEtiapine FUMARATE 25 MG TAB PO SCH (22:13)
[2019-01-04 05:00] VITALS: BP 108/63
[2019-01-04] MEDS: carBAMazepine 200 MG TAB PO SCH ×3 (05:49→22:37)
[2019-01-04] MEDS: methylPREDNISolone SOD SUCC 125 MG/2 ML VL IV SCH ×3 (05:49→21:54)
[2019-01-04] MEDS: ALBUTEROL SULF 2.5 MG/0.5ML(0.5%) NEB SOLN NEB SCH ×5 (06:22→22:00)
[2019-01-04] MEDS: BUDESONIDE (INHALATION) 0.5 MG/2 ML NEB NEB SCH ×2 (06:23→18:27)
[2019-01-04] MEDS: IPRATROPIUM BROM 0.5 MG/2.5ML INH SOL NEB SCH ×5 (06:23→22:00)
--- NOTE | 2019-01-04 07:45 | NUR ---
OPENING SHIFT NOTE ASSUMED CARE OF PATIENT. PATIENT AWAKE AND ALERT SITTING UP IN BED. NO S/S OF DISTRESS OR SOB NOTED. BED IN LOWEST LOCKED POSITION, CALL LIGHT WITHIN REACH. REVIEWED POC WITH PATIENT AND INSTRUCTED TO CALL FOR ASSIST NEEDED. WILL CONTINUE TO MONITOR.
[2019-01-04 08:00] VITALS: BP 106/51
--- NOTE | 2019-01-04 08:12 | NUR ---
DIET/PAGED LEFT MESSAGE FOR DR CHOPRA AT THIS TIME. AWAITING CALL BACK.
--- NOTE | 2019-01-04 08:56 | NUR ---
CALL BACK FROM RECEIVED CALL BACK FROM DR CHOPRA REGARDING DIET. RECEIVED NEW ORDERS, ORDERS READ BACK AND VERIFIED. CONTINUING TO MONITOR.
[2019-01-04] MEDS ORDERED: POTASSIUM CHL 20 Meq TABLET PO ONE (10:15)
[2019-01-04] MEDS: HYDROcodone-ACET 5/325MG TAB PO PRN (11:33)
[2019-01-04] MEDS: POLYETHYLENE GLYCOL 17 GM PWDR PO SCH (11:34)
[2019-01-04 12:00] VITALS: BP 130/82
--- NOTE | 2019-01-04 15:44 | NUR ---
AT BEDSIDE DR CHOPRA AT BEDSIDE AT THIS TIME. CONTINUING TO MONITOR.
[2019-01-04 16:00] VITALS: BP 119/68
[2019-01-04] MEDS: LEVOFLOXACIN 500MG 100 ML IV SCH (17:48)
[2019-01-04] MEDS: OLANZapine 5 MG TAB PO SCH (17:49)
--- NOTE | 2019-01-04 18:51 | NUR ---
END OF SHIFT NOTE PATIENT AWAKE AND ALERT SITTING UP IN BED. NO S/S OF DISTRESS OR SOB NOTED. BED IN LOWEST LOCKED POSITION, CALL BACK WITHIN REACH. WILL ENDORSE CARE TO NOC RN.
[2019-01-04 22:00] VITALS: BP 121/73
[2019-01-04] MEDS: QUEtiapine FUMARATE 25 MG TAB PO SCH (22:37)
[2019-01-05] MEDS: IPRATROPIUM BROM 0.5 MG/2.5ML INH SOL NEB SCH ×6 (02:18→22:16)
[2019-01-05] MEDS: ALBUTEROL SULF 2.5 MG/0.5ML(0.5%) NEB SOLN NEB SCH ×6 (02:18→22:16)
[2019-01-05 05:00] VITALS: BP 103/64
[2019-01-05] MEDS: carBAMazepine 200 MG TAB PO SCH ×3 (06:17→21:20)
[2019-01-05] MEDS: methylPREDNISolone SOD SUCC 125 MG/2 ML VL IV SCH ×3 (06:17→21:20)
[2019-01-05 07:19] LABS: Basophils # (auto) 0 uL; Basophils % (auto) 0.1 % (0.0-2.0); Eosinophils # (auto) 0 uL; Eosinophils % (auto) 0.1 % (0.0-7.0); Hematocrit 32.5 % (36.0-46.0); Hemoglobin 11.2 g/dL (12.2-16.2); Lymphocytes # (auto) 2.8 uL; Lymphocytes % (auto) 31.2 % (10.0-50.0); Mean Corpuscular Hemoglobin 33.4 pg (28.0-32.0); Mean Corpuscular Hgb Conc. 34.3 g/dL (32.0-36.0); Mean Corpuscular Volume 97.4 fL (80.0-100.0); Monocytes # (auto) 0.6 uL; Monocytes % (auto) 6.8 % (0.0-12.0); Neutrophils # (auto) 5.5 uL; Neutrophils % (auto) 61.8 % (37.0-80.0); Nucleated Red Blood Cells % 0.1 %; Platelet Count (auto) 337 10^3/uL (140-450); Red Blood Cells 3.34 10^6/uL (4.0-5.20); Red Cell Distribution Width 12.2 % (11.8-14.3); White Blood Cell 8.9 10^3/uL (4.4-10.8)
--- NOTE | 2019-01-05 07:20 | NUR ---
Opening Shift Note Assumed care of patient, awake and alert. No S/S of distress/SOB or pain. Instructed on POC and to call for assist PRN, will continue to monitor for changes Q1hr and PRN.
[2019-01-05 07:36] LABS: Calcium 8.5 mg/dL (8.5-10.1); Potassium 3.6 mmol/L (3.5-5.1)
[2019-01-05 07:39] LABS: Magnesium 2.1 mg/dL (1.6-2.6)
[2019-01-05 09:00] VITALS: BP 135/84
[2019-01-05] MEDS: POLYETHYLENE GLYCOL 17 GM PWDR PO SCH (09:17)
[2019-01-05] MEDS: BUDESONIDE (INHALATION) 0.5 MG/2 ML NEB NEB SCH ×2 (09:48→18:27)
[2019-01-05] MEDS: MILK OF MAGNESIA 30ML SUSP PO PRN (11:59)
[2019-01-05] MEDS: HYDROcodone-ACET 5/325MG TAB PO PRN (13:34)
[2019-01-05] MEDS: ACETYLCYSTEINE 10 %(100MG/ML) SOL 4ML NEB SCH ×3 (14:06→22:16)
[2019-01-05 16:55] VITALS: BP 133/80
[2019-01-05] MEDS: LEVOFLOXACIN 500MG 100 ML IV SCH (17:23)
[2019-01-05] MEDS: OLANZapine 5 MG TAB PO SCH (17:23)
--- NOTE | 2019-01-05 19:11 | NUR ---
Change of shift given to night shift manager RN. No distress noted.
[2019-01-05] MEDS: QUEtiapine FUMARATE 25 MG TAB PO SCH (21:20)
[2019-01-05 22:00] VITALS: BP 136/88
[2019-01-05] MEDS: ZOLPIDEM TARTRATE 5 MG TAB PO PRN (23:27)
[2019-01-06] MEDS: ACETYLCYSTEINE 10 %(100MG/ML) SOL 4ML NEB SCH ×5 (02:00→23:04)
[2019-01-06] MEDS: ALBUTEROL SULF 2.5 MG/0.5ML(0.5%) NEB SOLN NEB SCH ×6 (02:00→23:04)
[2019-01-06] MEDS: IPRATROPIUM BROM 0.5 MG/2.5ML INH SOL NEB SCH ×6 (02:00→23:04)
[2019-01-06 05:45] VITALS: BP 107/72
[2019-01-06] MEDS: methylPREDNISolone SOD SUCC 125 MG/2 ML VL IV SCH ×3 (05:57→22:03)
[2019-01-06] MEDS: carBAMazepine 200 MG TAB PO SCH ×3 (05:57→22:03)
[2019-01-06] MEDS: BUDESONIDE (INHALATION) 0.5 MG/2 ML NEB NEB SCH ×2 (07:17→23:04)
[2019-01-06 09:00] VITALS: BP 110/61
[2019-01-06] MEDS: MILK OF MAGNESIA 30ML SUSP PO PRN (09:05)
[2019-01-06] MEDS: POLYETHYLENE GLYCOL 17 GM PWDR PO SCH (10:00)
[2019-01-06] MEDS: FLUTICASONE PROP NASAL SPR 0.05 % (50MCG) 16GM EACHNOSTRI SCH ×2 (12:15→22:02)
[2019-01-06 13:00] VITALS: BP 123/75
[2019-01-06] MEDS: HYDROcodone-ACET 5/325MG TAB PO PRN (15:07)
[2019-01-06 17:00] VITALS: BP 145/83
[2019-01-06] MEDS: OLANZapine 5 MG TAB PO SCH (17:08)
[2019-01-06] MEDS: LEVOFLOXACIN 500MG 100 ML IV SCH (17:08)
--- NOTE | 2019-01-06 19:26 | NUR ---
Change of shift given to csr retail RN. No distress noted.
--- NOTE | 2019-01-06 20:50 | NUR ---
PATIENT COMPLAINED OF PAIN TO RIGHT LOWER BACK SHE STATES THAT SHE MIGHT HAVE PULLED A MUSCLE. PROVIDED HER WITH 2 HOT PACKS.
[2019-01-06 21:30] VITALS: BP 132/87
[2019-01-06] MEDS: MILK OF MAGNESIA 30ML SUSP PO SCH (22:03)
[2019-01-06] MEDS: QUEtiapine FUMARATE 25 MG TAB PO SCH (22:03)
--- NOTE | 2019-01-06 23:00 | NUR ---
SPUTUM CULTURE SENT TO LAB
[2019-01-06] MEDS: ZOLPIDEM TARTRATE 5 MG TAB PO PRN (23:59)
[2019-01-07] MEDS: ALBUTEROL SULF 2.5 MG/0.5ML(0.5%) NEB SOLN NEB SCH ×4 (02:00→14:22)
[2019-01-07] MEDS: IPRATROPIUM BROM 0.5 MG/2.5ML INH SOL NEB SCH ×4 (02:00→14:22)
[2019-01-07] MEDS: ACETYLCYSTEINE 10 %(100MG/ML) SOL 4ML NEB SCH ×4 (02:00→14:22)
[2019-01-07 02:15] VITALS: BP 132/87
[2019-01-07 04:30] VITALS: BP 111/71
[2019-01-07] MEDS: carBAMazepine 200 MG TAB PO SCH ×2 (06:32→14:22)
[2019-01-07] MEDS: methylPREDNISolone SOD SUCC 125 MG/2 ML VL IV SCH ×2 (06:32→14:23)
--- NOTE | 2019-01-07 07:41 | NUR ---
Left message with Dr. Bro regarding orders for f/u labs. Awaiting call back.
[2019-01-07 09:00] VITALS: BP 118/65
[2019-01-07] MEDS: BUDESONIDE (INHALATION) 0.5 MG/2 ML NEB NEB SCH (09:48)
[2019-01-07] MEDS: MILK OF MAGNESIA 30ML SUSP PO SCH (10:00)
[2019-01-07] MEDS: POLYETHYLENE GLYCOL 17 GM PWDR PO SCH (10:00)
[2019-01-07] MEDS: FLUTICASONE PROP NASAL SPR 0.05 % (50MCG) 16GM EACHNOSTRI SCH (10:16)
[2019-01-07 13:00] VITALS: BP 125/77
--- NOTE | 2019-01-07 15:11 | NUR ---
NUTRITION ASSESSMENT NOTES Please refer to link notes of nutrition screen form filed under the intervention section of the plan of care for further details. Est. Needs: 1550 kcal to 1900 kcal (20-25 kcal/kgBW), 61 gms to 76 gms pro (0.8-1.0 gms/kgBW). Will continue to monitor pertinent labs and reassess nutrient need prn Thank you. Addendum: 01/07/19 at [address] Amended: Links added.
[2019-01-07] MEDS: LEVOFLOXACIN 500MG 100 ML IV SCH (17:00)
--- NOTE | 2019-01-07 17:39 | NUR ---
Dr. Bro returned page regarding patient's discharge prescriptions. Patient has documented allergy to PCN. Patient prescribed Keflex. cancelled Keflex. New prescription order for levaquin.
[2019-01-07] MEDS: OLANZapine 5 MG TAB PO SCH (18:00)
--- NOTE | 2019-01-07 18:28 | NUR ---
Discharge instructions given as ordered. Encourage to follow up with PMD as instructed. All questions and concerns addressed. Patient verbalized understanding. Medication reconciliation form completed and copy given to patient. Patient denies home medications held in Pharmacy. IV removed with catheter intact, pressure dressing applied. Patient taken to vehicle via wheelchair with all personal belongings, accompanied by staff and family member. No distress noted at time of departure.
--- NOTE | 2019-01-07 18:28 | NUR ---
Patient saturated 93-97% on RA entire shift. No SOB. No distress noted.
== END 2019-01-07 18:30 | disposition home or self-care (01) | DRG 189 ==
LOC: ER 10:35 → OVERFLOW 16:42 → CENTRAL 17:05
PROVIDERS: ADMIT Internal Medicine; ATTEND Internal Medicine
DX: J96.20 Acute and chronic respiratory failure, unspecified whether with hypoxia or hypercapnia (principal); J44.0 Chronic obstructive pulmonary disease with (acute) lower respiratory infection; J44.1 Chronic obstructive pulmonary disease with (acute) exacerbation; J20.9 Acute bronchitis, unspecified; Z90.710 Acquired absence of both cervix and uterus; Z87.891 Personal history of nicotine dependence; Z88.0 Allergy status to penicillin
CPT/HCPCS: 36415; 71045; 71046; 80048; 80053; 83605; 83735; 83880; 84484; 85025; 87040; 87070; 87205; 87804; 87880; 93005; 94640; 94644; 94761; 96365; 96375; 99291; G0378; J1956

== ENCOUNTER 2020-11-28 23:33 | Emergency (ER) | payer BC ==
[~2020-11-28] VITALS: Ht 165.1 cm; Wt 68.0 kg
[~2020-11-28 23:33] MED LIST changes: -LEVO500T21 PO; +LEVO500T31 PO; +OLAN1TAB7 PO; -OLAN5TAB30 PO
[2020-11-28 23:40] VITALS: BP 134/76
== END 2020-11-29 03:30 | disposition home or self-care (01) ==
LOC: ER 23:33 → EDBD 23:33 → ER 11-29 03:30
DX: S01.511A Laceration without foreign body of lip, initial encounter (principal); F10.920 Alcohol use, unspecified with intoxication, uncomplicated; J44.9 Chronic obstructive pulmonary disease, unspecified; Z87.891 Personal history of nicotine dependence; Z90.710 Acquired absence of both cervix and uterus; Z88.0 Allergy status to penicillin; Z79.899 Other long term (current) drug therapy; W19.XXXA Unspecified fall, initial encounter; Y93.89 Activity, other specified; Y92.89 Other specified places as the place of occurrence of the external cause; Y99.8 Other external cause status
CPT/HCPCS: 12013; 73562